=== PATIENT | male | born 1980 | race Caucasian/White ===

== ENCOUNTER 2017-10-27 13:12 | Emergency (ER) | payer OTHER ==
[2017-10-27 13:20] VITALS: BP 126/78; PULSE 60; RESP 20; TEMP 98.1
--- NOTE | 2017-10-27 14:07 | XR ---
EXAMINATION TYPE: XR shoulder complete RT DATE OF EXAM: 10/27/2017 COMPARISON: NONE HISTORY: Pain TECHNIQUE: Three views are submitted. FINDINGS: The osseous structures are intact. There is no acute fracture or dislocation. Mild narrowing of the AC joint.. IMPRESSION: 1. No acute process.
--- NOTE | 2017-10-27 14:08 | XR ---
EXAMINATION TYPE: XR cervical spine comp DATE OF EXAM: 10/27/2017 COMPARISON: NONE HISTORY: Pain TECHNIQUE: Four views are submitted. FINDINGS: The odontoid is intact. There are no compression deformities. The prevertebral soft tissue structur es are within normal limits. Degenerative disc disease C5-C6. I suggest cervical ribs bilaterally IMPRESSION: 1. Degenerative disc disease C5-C6. Correlate with MRI as clinically warranted.
--- NOTE | 2017-10-27 14:40 | ED ---
General Adult HPI - General Chief complaint: Extremity Problem,Nontraumatic Stated complaint: Shoulder Pain Time Seen by Provider: 10/27/17 13:36 Source: patient, RN notes reviewed Mode of arrival: ambulatory Limitations: no limitations - History of Present Illness Initial comments: 37-year-old male presents to the emergency department for a chief complaint of right shoulder pain 8 days. Patient denies any injury. Patient states he has a shooting pain from his neck down into his right shoulder and right upper arm. Patient states sometimes his hand feels tingly. Patient also has neck pain. Patient has tried Motrin for this which helps somewhat. Patient has no other complaints at this time including shortness of breath, chest pain, abdominal pain, nausea or vomiting, headache, or visual changes. - Related Data Previous Rx's Medication Instructions Recorded Cyclobenzaprine [Flexeril] 5 mg PO TID #12 tablet 10/27/17 Ibuprofen [Motrin] 600 mg PO Q8HR PRN #20 tab 10/27/17 Allergies Allergy/AdvReac Type Severity Reaction Status Date / Time No Known Allergies Allergy Verified 10/27/17 13:43 Review of Systems ROS Statement: Those systems with pertinent positive or pertinent negative responses have been documented in the HPI. ROS Other: All systems not noted in ROS Statement are negative. Past Medical History Past Medical History: No Reported History History of Any Multi-Drug Resistant Organisms: None Reported Past Surgical History: No Surgical Hx Reported Past Psychological History: No Psychological Hx Reported Smoking Status: Current every day smoker Past Alcohol Use History: Occasional Past Drug Use History: None Reported General Exam Limitations: no limitations General appearance: alert, in no apparent distress Head exam: Present: atraumatic, normocephalic, normal inspection Eye exam: Present: normal appearance, PERRL, EOMI. Absent: scleral icterus, conjunctival injection, periorbital swelling ENT exam: Present: normal exam, mucous membranes moist Neck exam: Present: tenderness (Right-sided paraspinal tenderness). Absent: meningismus, full ROM (Patient has full range of motion in rotation to the left about 45 of range of motion on rotation to the right. Patient has full flexion and extension of the neck.), lymphadenopathy, thyromegaly Respiratory exam: Present: normal lung sounds bilaterally. Absent: respiratory distress, wheezes, rales, rhonchi, stridor Cardiovascular Exam: Present: regular rate, normal rhythm, normal heart sounds. Absent: systolic murmur, diastolic murmur, rubs, gallop, clicks Extremities exam: Present: tenderness (Diffuse enderness to the shoulder joint.) , normal capillary refill (Refill less than 2 seconds and radial pulse 2+), other (Strength 5 out of 5 in upper extremities bilaterally. Tobacco Sampler strength 5 out of 5 in hands bilaterally. Sensation intact in right upper extremity.). Absent: full ROM (Patient has about 90 of flexion and abduction of the right shoulder. Full extension.), joint swelling (No swelling noted in the right upper extremity) Back exam: Present: normal inspection, full ROM. Absent: tenderness Course Vital Signs 10/27/17 13:18 Temperature 98.1 F Pulse Rate 60 Respiratory 20 Rate Blood Pressure 126/78 O2 Sat by Pulse 98 Oximetry Medical Decision Making - Medical Decision Making 37-year-old male presents to the emergency determine for chief complaint of right shoulder pain 8 days. Patient has sharp shooting pain from the neck to the right shoulder. Patient also has a sharp shooting pain in the right arm. Sates his hand is somewhat tingly. No acute injuries. On exam patient has limited range of motion of the right shoulder. Patient also has limited rotation of the neck to the right side. Patient has tenderness of the right paraspinal neck muscles and trapezius between the spine and shoulder blade. Strength 5 out of 5 in upper extremities bilaterally. Tobacco Sampler strength 5 out of 5 in upper extremities bilaterally. Neurovascular intact in right upper extremity. X-ray c-spine demonstrates degenerative disc disease C5 to C6. X- ray of the right shoulder shows no acute fracture or dislocation. Mild narrowing of before meals joint. No acute process. Patient likely has a cervical radiculopathy. He will follow up with primary care in 1-2 days. He will take Motrin and Tylenol for pain as well as a muscle relaxer. He was educated not to drive or operate machinery with a muscle relaxer. He will return to the emergency department if he has any worsening symptoms. Disposition Clinical Impression: Cervical radiculopathy, Shoulder pain, right Disposition: HOME SELF-CARE Condition: Good Instructions: Cervical Radiculopathy (ED), Shoulder Pain (ED) Additional Instructions: Please take Motrin as needed. Please take Flexeril as needed. Do not drive or operate machinery when taking Flexeril. Follow up with primary care in 1-2 days. Return to the emergency department if you have any worsening symptoms. Prescriptions: Cyclobenzaprine [Flexeril] 5 mg PO TID #12 tablet Ibuprofen [Motrin] 600 mg PO Q8HR PRN #20 tab PRN Reason: Pain Is patient prescribed a controlled substance at d/c from ED?: No Referrals: Davon De Souza MD [STAFF PHYSICIAN] - 1-2 days Time of Disposition: 14:41
== END 2017-10-27 14:48 | disposition home or self-care (01) ==
LOC: EC 13:12
DX: M50.122 Cervical disc disorder at C5-C6 level with radiculopathy (principal); M25.511 Pain in right shoulder; F17.200 Nicotine dependence, unspecified, uncomplicated
CPT/HCPCS: 72050; 99283

== ENCOUNTER → 2020-06-14 | Outpatient (CLI) | payer OTHER ==
--- NOTE | 2020-06-14 17:57 | US ---
EXAMINATION TYPE: US scrotum with doppler. Grayscale and color Doppler Duplex imaging performed of jessika vidal scrotum. DATE OF EXAM: 06/14/2020 COMPARISON: NONE CLINICAL HISTORY: N50.819 TESTICULAR PAIN. Pain bilateral testes EXAM MEASUREMENTS: TESTICLES: Right Testicle: 4.7 x 2.3 x 3.2 cm Left Testicle: 4.2 x 1.8 x 3.4 cm EPIDIDYMIS HEAD: Right Epididymis: 0.9 cm Left Epididymis: 0.9 cm Doppler performed to assess for testicular vascularity; good bilateral color flow and waveforms are s een. There is no evidence of testicular torsion. Presence of hydroceles: no significant fluid collection noted Presence of varicoceles: prominent/increased vascularity lateral to right testicle and medial to le ft testicle cystic areas right epididymis = 0.3cm and 0.3cm IMPRESSION: 1. Increased vascularity within the midline could be related to varicoceles. 2. Small right epididymal cysts. 3. Bilateral testicles appear within normal limits.
== END | disposition home or self-care (01) ==
LOC: RADUSWWP 15:23
PROVIDERS: ATTEND Family Medicine
DX: N50.3 Cyst of epididymis (principal); N50.89 Other specified disorders of the male genital organs
CPT/HCPCS: 76870; 93975

== ENCOUNTER 2020-06-27 06:53 | Day surgery (SDC) | payer OTHER ==
[2020-06-23 09:53] VITALS: BMI 21.4
[~2020-06-27 06:53] MED LIST: LIDOCAINE 1% (10MG/ML) FOR IV START INTRADERMA PRN; MIDAZOLAM 2 MG/2 ML VIAL IV PRN
[2020-06-27 07:30] VITALS: RESP 16; TEMP 98.3
[2020-06-27] MEDS: LACTATED RINGERS 1,000 ML IV SCH ×2 (07:40→08:16)
[2020-06-27] MEDS ORDERED: PROPOFOL 10 MG/ML 20 ML VIAL IV ONE (08:17)
--- NOTE | 2020-06-27 08:56 | P.PCN ---
Date of Procedure: 06/27/20 Description of Procedure: BRIEF HISTORY: Patient is a 40-year-old male presenting for outpatient colonoscopy for evaluation of hemorrhage of the anus and rectum. Patient had been seen in the clinic reporting red tinged blood and change in the caliber of his stool. No prior colonoscopy. No family history of colon cancer or inflammatory bowel disease. PROCEDURE PERFORMED: Colonoscopy with polypectomy. PREOPERATIVE DIAGNOSIS: Hemorrhage of the anus and rectum, no prior colonoscopy. ESTIMATED BLOOD LOSS: Minimal. IV sedation per Anesthesia. PROCEDURE: After informed consent was obtained, the patient, was brought into the endoscopy unit. IV sedation was administered by Anesthesia under continuous monitoring. Digital rectal examination was normal. Initially the Olympus CF-190 flexible video colonoscope was then inserted in the rectum, gradually advanced into the cecum without any difficulty. Careful examination was performed as the scope was gradually being withdrawn. Ileocecal valve and the appendiceal orifice were visualized and appeared normal. Prep was excellent. Mucosa of the cecum, ascending colon, transverse colon, descending colon, sigmoid colon, and rectum appeared normal. 2 diminutive cecal polyps measuring 1 mm in size removed with cold forcep polypectomy. Retroflexion was performed in the rectum and no lesions were seen, low-grade internal hemorrhoids. The patient tolerated the procedure well. IMPRESSION: 2 diminutive cecal polyps removed with cold forcep polypectomy. Internal hemorrhoids. RECOMMENDATIONS: Findings of this examination were discussed with the patient and his family. Okay to resume diet. Okay to resume medications. Extensive discussion with the patient regarding local hemorrhoidal care. Repeat colonoscopy in 7 years for colon polyps, if polyps are hyperplastic okay to repeat in 10 years.
[2020-06-27 09:13] VITALS: BP 160/84; PULSE 54
== END 2020-06-27 09:30 | disposition home or self-care (01) ==
LOC: ORWHC2ENDO 06:53
PROVIDERS: ATTEND Internal Medicine
DX: D12.0 Benign neoplasm of cecum (principal); K64.8 Other hemorrhoids; F17.210 Nicotine dependence, cigarettes, uncomplicated; Z98.890 Other specified postprocedural states
CPT/HCPCS: 45380; J2704; 88305